=== PATIENT | female | born 1980 | race Caucasian/White ===

== ENCOUNTER 2020-04-06 10:34 | Emergency (ER) | payer BC, SELFPAY ==
[2020-04-06 10:53] VITALS: BP 138/84; PULSE 93; RESP 20; TEMP 36.3; O2SAT 99
[2020-04-06 10:57] VITALS: BP 138/84; PULSE 93; RESP 20; TEMP 36.3; O2SAT 99
--- NOTE | 2020-04-06 10:57 | ED.FEMALEGU ---
HPI - Female Genitourinary General Chief complaint: Urogenital-Female Stated complaint: uti Time Seen by Provider: 04/06/20 11:15 Source: patient and RN notes reviewed Mode of arrival: ambulatory Limitations: no limitations History of Present Illness HPI Narrative: 40-year-old female presents concern for urinary tract infection. Reports symptoms for 1 week. Reports frequent UTIs since she has had her IUD removed 2 months ago, was last treated with Macrobid reports frequency, urgency, mild low back pain, nausea. Reports she took Azo today. She denies fever, vomiting, abdominal pain, abnormal vaginal discharge. MD elicited complaint: UTI Related Data Home Medications Medication Instructions Recorded Confirmed buspirone 10 mg DAILY 04/06/20 04/06/20 dextroamphetamine-amphetamine 10 mg PO BID 04/06/20 04/06/20 [Adderall] vilazodone [Viibryd] 20 mg DAILY 04/06/20 04/06/20 Allergies Allergy/AdvReac Type Severity Reaction Status Date / Time No Known Allergies Allergy Verified 04/06/20 10:57 Review of Systems Review of Systems: Narrative: CONSTITUTIONAL: Denies malaise, chills, sweats, or fever. CARDIOVASCULAR: Denies chest pain, palpitations, or edema. RESPIRATORY: Denies cough or dyspnea. GASTROINTESTINAL: Denies abdominal pain, vomiting, diarrhea. Reports nausea GENITOURINARY: Reports dysuria, frequency, urgency hematuria. MUSCULOSKELETAL: Reports mild low back pain . All systems reviewed & are unremarkable except as noted in HPI and below PMFSH Social History Social History Gender identity (if verbalized by the patient): Female Comments At time of signature, agree with nursing past medical, surgical, social and family history. There is no relevant family history pertinent to the presenting complaint Exam Narrative: Exam Narrative: GENERAL: Well-appearing, well-nourished, and in no acute distress. HEAD: Normocephalic. EYES: PERRLA, conjunctivae clear. NECK: Supple. No lymphadenopathy CHEST: Clear to auscultation. No respiratory distress. HEART: Regular rate and rhythm. ABDOMEN: Soft, nontender upon palpation, nondistended, normal active bowel sounds, no palpable or pulsatile masses, no guarding. No CVA tenderness SKIN: Warm, dry, no rash. NEURO: Alert and oriented x3. PSYCH: Normal mood and affect Course Course Emergency Course: Patient is aware of diagnosis, understands and agrees to treatment plan. Anticipatory guidance given. Patient agrees to follow-up as directed and is aware of reasons to seek care at the emergency department. Portions of this record may have been created with voice recognition software Vital Signs Vital signs: Vital Signs Temperature 97.4 F L 04/06/20 10:53 Pulse Rate 93 04/06/20 10:53 Respiratory Rate 20 04/06/20 10:53 Blood Pressure 138/84 04/06/20 10:53 Pulse Oximetry 99 04/06/20 10:53 Temperature 97.4 F L 04/06/20 10:57 Pulse Rate 93 04/06/20 10:57 Respiratory Rate 20 04/06/20 10:57 Blood Pressure 138/84 04/06/20 10:57 Pulse Oximetry 99 04/06/20 10:57 Reviewed. MDM - Female Genitourinary MDM Narrative Medical decision making narrative: Exam findings and UA show no acute concerns or changes; patient is non-toxic appearing and is in no distress. Patient is appropriate for outpatient treatment and follow-up. Differential Diagnosis Differential diagnosis: Likely urinary tract infection and cystitis Lab Data Labs: Urine Glucose Trace Reference Range: Negative Urine Glucose Trace Reference Range: Negative Urine Bilirubin Negative Reference Range: Negative Urine Bilirubin Negative Reference Range: Negative Urine Ketone Negative
== END 2020-04-06 11:28 | disposition home or self-care (01) ==
PROVIDERS: Emergency Provider Nurse Practitioner
DX: R35.0 Frequency of micturition (principal); R39.15 Urgency of urination; M54.5 Low back pain; R11.0 Nausea; F98.8 Other specified behavioral and emotional disorders with onset usually occurring in childhood and adolescence; F32.9 Major depressive disorder, single episode, unspecified
CPT/HCPCS: 81003; 87077; 87086; 87088; 99203; G0463